=== PATIENT | female | born 1995 | race African-American/Black ===

== ENCOUNTER 2017-12-06 22:09 | Emergency (ER) | payer MEDICAID ==
[~2017-12-06] VITALS: Ht 162.6 cm; Wt 53.0 kg
[2017-12-06] MEDS ORDERED: DIPHENHYDRAMINE 25MG CAPSULE PO ONE (23:30)
[2017-12-07 00:22] VITALS: BP 115/73
== END 2017-12-07 00:24 | disposition home or self-care (01) ==
LOC: ER 23:05
DX: O99.89 Other specified diseases and conditions complicating pregnancy, childbirth and the puerperium (principal); R21 Rash and other nonspecific skin eruption
CPT/HCPCS: 99283; Q0163